=== PATIENT | female | born 1975 | race Caucasian/White ===

== ENCOUNTER 2022-06-29 10:50 | Day surgery (SDC) | payer BC, OTHER ==
[2022-06-25 15:36] VITALS: BMI 20.3
[2022-06-29 14:03] VITALS: RESP 20; TEMP 97.8
[2022-06-29 14:07] VITALS: BP 116/60; PULSE 71
== END 2022-06-29 14:05 | disposition home or self-care (01) ==
LOC: FASU-ENDO 10:50
PROVIDERS: ATTEND Internal Medicine Gastroenterology
PROC: 0DJD8ZZ Inspection of Lower Intestinal Tract, Via Natural or Artificial Opening Endoscopic (ICD-10-PCS; principal; 2022-06-29 12:50)
DX: Z12.11 Encounter for screening for malignant neoplasm of colon (principal)
CPT/HCPCS: 81025